=== PATIENT | female | born 1965 | race African-American/Black ===

== ENCOUNTER 2024-09-13 14:47 | Inpatient (IN) | payer BC, MEDICARE, SELFPAY ==
[2024-09-13] MEDS ORDERED: Fentanyl CADD 100 ML IV SCH ×2 (15:45→17:15)
[2024-09-13 16:19] LABS: Bacteria/HPF None Seen HPF (None Seen); Bilirubin Negative (Negative); Blood, Urine Negative (Negative); CAUTI Indications for Culture Alt mental st,lethar; Clarity Clear (Clear); Glucose, Urine (Dipstick) Greater than 1000 mg/dL (Negative); Ketone, Urine Negative (Negative); Leukocyte Negative Leu/uL (Negative); Nitrite Negative (Negative); Protein, Urine (Dipstick) Negative (Neg-Trace); RBC/HPF 0-3 HPF (0-3); Specific Gravity, Urine 1.026 (1.002-1.036); Squamous Epithelial 0-3 HPF (0-3); Urobilinogen Normal mg/dL (Less than 2); WBC/HPF 0-3 HPF (0-3); pH, Urine 5.5 (5.0-9.0)
[2024-09-13 16:19] LABS: Magnesium 3.2 mg/dL (1.6-2.6)
[2024-09-13 16:20] LABS: Acetaminophen Less than 10 mcg/mL (Less than 10); Alcohol Less than 10.0 mg/dL (Less than 10); Salicylate Less than 8.0 mg/dL (Less than 8.0); Troponin I 0.027 ng/mL (< 0.028)
[2024-09-13 16:25] LABS: Amphetamine Not Detected (NotDetected); Barbiturates Screen Not Detected (NotDetected); Benzodiazepine Screen Not Detected (NotDetected); Cocaine Metabolite Screen Not Detected (NotDetected); Methadone Not Detected (NotDetected); Methamphetamine Not Detected (NotDetected); Opiate Screen Not Detected (NotDetected); Oxycodone Screen Not Detected (NotDetected); Phencyclidine (PCP) Not Detected (NotDetected); THC/Cannabinoid Screen Not Detected (NotDetected); Tricyclic Screen Not Detected (NotDetected)
[2024-09-13] MEDS ORDERED: cefTRIAXone (ROCEPHIN) 2 GM VIAL ONE (16:32)
[2024-09-13] MEDS ORDERED: Sodium Chloride 0.9% 100 ML ONE (16:33)
[2024-09-13 16:35] LABS: Urine Culture Reflex No No
[2024-09-13] MEDS ORDERED: Azithromycin 500 MG VIAL ONE (16:46)
[2024-09-13] MEDS ORDERED: Ventilator Sedation Protocol FS SCH (16:55)
[2024-09-13] MEDS ORDERED: Electrolyte Replacement Protocol 1 EACH FS SCH (16:55)
[2024-09-13] MEDS ORDERED: Sodium Chloride 0.9% 1,000 ML IV SCH (17:00)
[2024-09-13] MEDS ORDERED: NOREPINEPHRINE 8 MG/250 ML-D5W 250 ML IVPB SCH (17:00)
[2024-09-13] MEDS ORDERED: Glucagon 1 MG/ML KIT IM PRN (17:08)
[2024-09-13] MEDS ORDERED: Insulin Regular, Human 100 UNIT/ML 10 ML VIAL SC PRN (17:08)
[2024-09-13] MEDS ORDERED: Dextrose 50% Abboject 50 ML SYRINGE SLOW IVP PRN (17:08)
[2024-09-13] MEDS ORDERED: Dextrose 5% in Water 1,000 ML IV PRN (17:08)
[2024-09-13] MEDS ORDERED: DISCONTINUE PREVIOUS NARCOTIC PAIN MEDICATIONS AND BENZODIAZEPINES FS SCH (17:15)
[2024-09-13] MEDS ORDERED: Fentanyl BOLUS 250 ML IVPB PRN (17:15)
[2024-09-13] MEDS ORDERED: Propofol BOLUS 1,000 MG/100 ML VIAL IV PRN (17:15)
[2024-09-13 17:40] LABS: Actual Bicarbonate (HCO3a) 24.1 mEq/L (22-28); Analyzer IN Cardio ER; Base Excess (BEa) 1.4 mEq/L (-2.0 to +3.0); CO2 Tension 31.2 mmHg (35.0-45.0); Calcium, Ionized (arterial) 1.22 mmol/L (1.12-1.30); Carboxyhemoglobin (COHb) 0.1 gm% (0.0-3.0); Hematocrit-ABG 32 % (36.0-47.0); Hemoglobin (Hb) 10.8 g/dL (12.0-16.0); O2 Tension (PaO2), arterial 61.9 mmHg (> 80.0); Potassium - ABG Lab 3.94 mmol/L (3.70-5.30); pH, Arterial 7.505 (7.35-7.45)
[2024-09-13 17:43] LABS: Puncture Site Right Radial artery
[2024-09-13 19:02] LABS: #Basophils Less than 0.03 10x3/uL (0.0-0.2); #Eosinophils Less than 0.03 10x3/uL (0.0-0.7); %Basophils 0.1 % (0.0-1.0); %Lymphocytes 18.8 % (21.0-51.0); %Monocytes 6.2 % (0.0-10.0); %Neutrophils 74.4 % (42.0-75.0); Hematocrit 34.3 % (36.0-47.0); Hemoglobin 10.3 g/dL (12.0-16.0); Mean Corpuscular Volume 96.6 fL (78.0-98.0); Mean Platelet Volume 12.9 fL (7.4-10.4); Platelet Count 129 10x3/uL (130-400); RBC Distribution Width 16.9 % (11.5-14.5); Red Blood Cell (RBC) Count 3.55 mill/uL (4.20-5.40)
[2024-09-13] MEDS: Ipratropium/Albuterol 3 ML NEB NEB SCH (19:13)
[2024-09-13 19:23] LABS: ALT (SGPT) 15 U/L (8-55); AST (SGOT) 15 U/L (5-34); Albumin 2.2 g/dL (3.5-5.0); Alkaline Phosphatase 87 U/L (40-110); Anion Gap 16 mmol/L (10-20); BUN (Urea Nitrogen) 103 mg/dL (9.8-20.1); Bilirubin, Total 0.2 mg/dL (0.2-1.2); Calcium 8.3 mg/dL (7.8-10.44); Carbon Dioxide 23 mmol/L (22-29); Chloride 128 mmol/L (98-107); Globulin 3.4 g/dL (2.4-3.5); Glucose 705 mg/dL (70-105); Potassium 3.9 mmol/L (3.5-5.1); Protein, Total 5.6 g/dL (6.0-8.3); Sodium 163 mmol/L (136-145)
[2024-09-13 19:34] LABS: INR-International Normal Ratio 1.2; Prothrombin Time 15.5 sec (12.0-14.7)
[2024-09-13 19:35] LABS: PTT 25.5 sec (22.9-36.1)
[2024-09-13 19:39] VITALS: BMI 25.7
[2024-09-13 19:48] LABS: Calc. Creatinine Clearance 32 mL/min (70-130); Estimated GFR 28
[2024-09-13] MEDS: Dextrose 5% in Water 1,000 ML IV SCH (19:57)
[2024-09-13] MEDS ORDERED: Vancomycin Dose by Levels Sliding Scale (Wt <71) FS SCH (20:00)
[2024-09-13] MEDS: Cefepime 1 GM in Sodium Chloride 0.9% 100 ML IVPB SCH (20:08)
[2024-09-13] MEDS: INSULIN REGULAR IN 0.9 % NACL 100 ML IVPB SCH (20:18)
[2024-09-13] MEDS: Vancomycin (BATCH) 1.5 GM in Premix 1 BAG IVPB SCH (21:28)
[2024-09-13 21:42] LABS: Glucose 648 mg/dL (70-105)
[2024-09-13 22:18] LABS: Troponin I 0.037 ng/mL (< 0.028)
[2024-09-13 22:26] LABS: Critical Call Chemistry D; Glucose 591 mg/dL (70-105)
[2024-09-13 23:30] LABS: Troponin I 0.034 ng/mL (< 0.028)
[2024-09-13 23:58] LABS: Anion Gap 15 mmol/L (10-20); BUN (Urea Nitrogen) 91 mg/dL (9.8-20.1); Calc. Creatinine Clearance 34 mL/min (70-130); Calcium 8.7 mg/dL (7.8-10.44); Carbon Dioxide 21 mmol/L (22-29); Chloride 131 mmol/L (98-107); Estimated GFR 30; Glucose 542 mg/dL (70-105); Potassium 3.2 mmol/L (3.5-5.1); Sodium 164 mmol/L (136-145)
[2024-09-14] MEDS: Potassium Chloride 40 MEQ in Premix 1 BAG IVPB SCH ×2 (00:38→12:06)
[2024-09-14] MEDS: Dextrose 5% in Water 1,000 ML IV SCH ×2 (00:46→14:42)
[2024-09-14 00:55] LABS: Glucose 464 mg/dL (70-105)
[2024-09-14] MEDS: Propofol 1,000 MG/100 ML VIAL IV PRN (02:59)
[2024-09-14 05:13] LABS: Hematocrit 33.2 % (36.0-47.0); Hemoglobin 9.6 g/dL (12.0-16.0); Mean Corpuscular HGB CONC 28.9 g/dL (32.0-36.0); Mean Corpuscular Hemoglobin 28.4 pg (27.0-31.0); Mean Corpuscular Volume 98.2 fL (78.0-98.0); Mean Platelet Volume 12.6 fL (7.4-10.4); Platelet Count 112 10x3/uL (130-400); RBC Distribution Width 16.9 % (11.5-14.5); Red Blood Cell (RBC) Count 3.38 mill/uL (4.20-5.40)
[2024-09-14 05:27] LABS: Anion Gap 14 mmol/L (10-20); BUN (Urea Nitrogen) 91 mg/dL (9.8-20.1); Calc. Creatinine Clearance 43 mL/min (70-130); Calcium 8.9 mg/dL (7.8-10.44); Carbon Dioxide 22 mmol/L (22-29); Chloride 130 mmol/L (98-107); Estimated GFR 39; Glucose 340 mg/dL (70-105); Potassium 3.6 mmol/L (3.5-5.1); Sodium 162 mmol/L (136-145)
[2024-09-14 05:38] LABS: Band 38 % (5-11); Eosinophils 1 % (0-10); Hypochromia SLIGHT = 6-15 cells HPF (0-5); Large Platelets 6.7 % (0-5); Lymphocytes 26 % (21-51); Metamyelocyte 1 % (0-0); Monocytes 3 % (0-10); Myelocyte 1 % (0-0); Neutrophil 31 % (42-75); Nucleated RBC (Manual Ct) 10 % (0); Platelet Adequacy Comment Platelets Decreased; Polychromasia SLIGHT = 2-3 cells HPF (0-2)
[2024-09-14 07:57] LABS: Actual Bicarbonate (HCO3a) 22.7 mEq/L (22-28); Base Excess (BEa) -2.2 mEq/L (-2.0 to +3.0); CO2 Tension 39.2 mmHg (35.0-45.0); Calcium, Ionized (arterial) 1.29 mmol/L (1.12-1.30); Carboxyhemoglobin (COHb) 0.8 gm% (0.0-3.0); Hematocrit-ABG 35 % (36.0-47.0); Hemoglobin (Hb) 11.8 g/dL (12.0-16.0); O2 Tension (PaO2), arterial 77.9 mmHg (> 80.0); Potassium - ABG Lab 3.38 mmol/L (3.70-5.30)
[2024-09-14 07:59] LABS: Puncture Site Left Radial artery
[2024-09-14 09:52] LABS: Anion Gap 9 mmol/L (10-20); BUN (Urea Nitrogen) 81 mg/dL (9.8-20.1); Calc. Creatinine Clearance 52 mL/min (70-130); Calcium 8.8 mg/dL (7.8-10.44); Carbon Dioxide 24 mmol/L (22-29); Chloride 131 mmol/L (98-107); Estimated GFR 49; Glucose 197 mg/dL (70-105); Potassium 3.4 mmol/L (3.5-5.1); Sodium 161 mmol/L (136-145)
[2024-09-14] MEDS: Pantoprazole 40 MG VIAL IVP SCH (10:00)
[2024-09-14 12:53] LABS: Vancomycin, Random 18.6 ug/mL (See Comment)
[2024-09-14 14:02] LABS: Anion Gap 12 mmol/L (10-20); BUN (Urea Nitrogen) 67 mg/dL (9.8-20.1); Calc. Creatinine Clearance 61 mL/min (70-130); Carbon Dioxide 23 mmol/L (22-29); Chloride 129 mmol/L (98-107); Estimated GFR 59; Glucose 84 mg/dL (70-105); Potassium 4.4 mmol/L (3.5-5.1); Sodium 160 mmol/L (136-145)
[2024-09-14] MEDS: FLU (Fluarix Triv) TS24-25(6MOS UP)/PF 45 MCG/0.5 ML Syringe IM ONE (14:28)
[2024-09-14] MEDS ORDERED: Electrolyte Replacement Protocol FS PRN (14:45)
[2024-09-14] MEDS: Vancomycin 1 GM in Premix 1 BAG IVPB SCH (16:30)
[2024-09-14 16:39] LABS: Anion Gap 12 mmol/L (10-20); BUN (Urea Nitrogen) 65 mg/dL (9.8-20.1); Calc. Creatinine Clearance 53 mL/min (70-130); Calcium 8.9 mg/dL (7.8-10.44); Carbon Dioxide 22 mmol/L (22-29); Chloride 128 mmol/L (98-107); Estimated GFR 50; Glucose 171 mg/dL (70-105); Potassium 4.6 mmol/L (3.5-5.1); Sodium 157 mmol/L (136-145)
[2024-09-14] MEDS: Morphine 2 MG/ML VIAL SLOW IVP PRN (19:43)
[2024-09-14] MEDS: Cefepime 2 GM in Sodium Chloride 0.9% 100 ML IVPB SCH (19:54)
[2024-09-14 20:11] LABS: Anion Gap 14 mmol/L (10-20); BUN (Urea Nitrogen) 63 mg/dL (9.8-20.1); Calc. Creatinine Clearance 51 mL/min (70-130); Calcium 8.7 mg/dL (7.8-10.44); Carbon Dioxide 20 mmol/L (22-29); Chloride 124 mmol/L (98-107); Estimated GFR 48; Glucose 353 mg/dL (70-105); Potassium 4.6 mmol/L (3.5-5.1); Sodium 153 mmol/L (136-145)
[2024-09-14] MEDS: Lorazepam 2 MG/ML VIAL SLOW IVP PRN (20:24)
[2024-09-14] MEDS ORDERED: Glucagon 1 MG/ML KIT IM PRN (20:38)
[2024-09-14] MEDS ORDERED: Dextrose 5% in Water 1,000 ML IV PRN (20:38)
[2024-09-14] MEDS: Insulin Lispro 100 UNIT/ML 10 ML VIAL SC PRN (20:57)
[2024-09-14 23:43] LABS: Anion Gap 12 mmol/L (10-20); BUN (Urea Nitrogen) 60 mg/dL (9.8-20.1); Calc. Creatinine Clearance 52 mL/min (70-130); Calcium 8.5 mg/dL (7.8-10.44); Carbon Dioxide 19 mmol/L (22-29); Chloride 123 mmol/L (98-107); Estimated GFR 49; Glucose 426 mg/dL (70-105); Potassium 4.3 mmol/L (3.5-5.1); Sodium 150 mmol/L (136-145)
[2024-09-14] MEDS: INSULIN REGULAR IN 0.9 % NACL 100 ML IVPB SCH (23:59)
[2024-09-15] MEDS: Dextrose 5% in Water 1,000 ML IV SCH (01:13)
[2024-09-15 04:51] LABS: Hematocrit 27.2 % (36.0-47.0); Hemoglobin 8.1 g/dL (12.0-16.0); Mean Corpuscular HGB CONC 29.8 g/dL (32.0-36.0); Mean Corpuscular Hemoglobin 28.9 pg (27.0-31.0); Mean Corpuscular Volume 97.1 fL (78.0-98.0); Mean Platelet Volume 13.2 fL (7.4-10.4); Platelet Count 91 10x3/uL (130-400); RBC Distribution Width 16.9 % (11.5-14.5)
[2024-09-15 04:59] LABS: Anion Gap 13 mmol/L (10-20); BUN (Urea Nitrogen) 56 mg/dL (9.8-20.1); Calc. Creatinine Clearance 53 mL/min (70-130); Calcium 8.5 mg/dL (7.8-10.44); Carbon Dioxide 20 mmol/L (22-29); Chloride 120 mmol/L (98-107); Estimated GFR 48; Glucose 335 mg/dL (70-105); Potassium 3.9 mmol/L (3.5-5.1); Sodium 149 mmol/L (136-145)
[2024-09-15 06:25] LABS: Band 57 % (5-11); Large Platelets 12.7 % (0-5); Lymphocytes 11 % (21-51); Metamyelocyte 1 % (0-0); Monocytes 2 % (0-10); Neutrophil 29 % (42-75); Nucleated RBC (Manual Ct) 4 % (0); Platelet Adequacy Comment Platelets Decreased; Polychromasia SLIGHT = 2-3 cells HPF (0-2); Toxic Granulation SLIGHT; Vacuoles SLIGHT
[2024-09-15] MEDS: Sodium Chloride 0.45% 1,000 ML IV SCH (09:43)
[2024-09-15] MEDS: Insulin Glargine 30 UNITS/0.3 ML VIAL SC SCH (10:18)
[2024-09-15] MEDS ORDERED: Insulin Lispro 100 UNIT/ML 10 ML VIAL SC PRN (11:30)
[2024-09-15] MEDS: Nystatin 500,000 UNITS/5 ML UDCUP SSW SCH (12:58)
[2024-09-15] MEDS: levETIRAcetam 500 mg/5 ml Oral Solution PER TUBE SCH (20:13)
[2024-09-16] MEDS: Insulin Lispro 100 UNIT/ML 10 ML VIAL SC PRN (00:46)
[2024-09-16 05:48] LABS: Hematocrit 24.1 % (36.0-47.0); Hemoglobin 7.2 g/dL (12.0-16.0); Mean Corpuscular HGB CONC 29.9 g/dL (32.0-36.0); Mean Corpuscular Hemoglobin 28.5 pg (27.0-31.0); Mean Corpuscular Volume 95.3 fL (78.0-98.0); Mean Platelet Volume 13.3 fL (7.4-10.4); Platelet Count 94 10x3/uL (130-400); RBC Distribution Width 16.4 % (11.5-14.5); Red Blood Cell (RBC) Count 2.53 mill/uL (4.20-5.40)
[2024-09-16 06:22] LABS: Band 11 % (5-11); Eosinophils 1 % (0-10); Lymphocytes 7 % (21-51); Monocytes 4 % (0-10); Neutrophil 77 % (42-75); Nucleated RBC (Manual Ct) 6 % (0); Platelet Adequacy Comment Platelets Decreased; Polychromasia SLIGHT = 2-3 cells HPF (0-2)
[2024-09-16 06:41] LABS: Anion Gap 13 mmol/L (10-20); BUN (Urea Nitrogen) 35 mg/dL (9.8-20.1); Calc. Creatinine Clearance 66 mL/min (70-130); Calcium 8.8 mg/dL (7.8-10.44); Carbon Dioxide 17 mmol/L (22-29); Chloride 117 mmol/L (98-107); Estimated GFR 63; Glucose 222 mg/dL (70-105); Potassium 3.7 mmol/L (3.5-5.1); Sodium 143 mmol/L (136-145)
[2024-09-16 06:42] LABS: Vancomycin, Random 27.6 ug/mL (See Comment)
[2024-09-16 08:06] LABS: Actual Bicarbonate (HCO3a) 17.7 mEq/L (22-28); Base Excess (BEa) -5.9 mEq/L (-2.0 to +3.0); CO2 Tension 28.4 mmHg (35.0-45.0); Calcium, Ionized (arterial) 1.28 mmol/L (1.12-1.30); Carboxyhemoglobin (COHb) 0.2 gm% (0.0-3.0); Hematocrit-ABG 28 % (36.0-47.0); Hemoglobin (Hb) 9.6 g/dL (12.0-16.0); O2 Tension (PaO2), arterial 65.5 mmHg (> 80.0); Potassium - ABG Lab 3.84 mmol/L (3.70-5.30); pH, Arterial 7.412 (7.35-7.45)
[2024-09-16 08:07] LABS: Puncture Site Right Radial artery
[2024-09-16] MEDS: Sertraline 25 MG TAB PER TUBE SCH (08:26)
[2024-09-16] MEDS: Vancomycin HCl 750 MG in Sodium Chloride 0.9% 250 ML 250 ML IVPB SCH (17:09)
[2024-09-16] MEDS: Piperacillin/Tazobactam 3.375 GM in Sodium Chloride 0.9% 100 ML IVPB SCH ×2 (19:41→22:17)
[2024-09-16] MEDS: Carvedilol 6.25 MG TAB PER TUBE SCH (20:16)
[2024-09-16] MEDS: Insulin Glargine 30 UNITS/0.3 ML VIAL SC SCH (20:17)
[2024-09-17 04:24] LABS: #Basophils Less than 0.03 10x3/uL (0.0-0.2); %Basophils 0.1 % (0.0-1.0); %Eosinophils 1.1 % (0.0-10.0); %Lymphocytes 7.8 % (21.0-51.0); %Monocytes 5.9 % (0.0-10.0); %Neutrophils 83.5 % (42.0-75.0); Hematocrit 20.9 % (36.0-47.0); Hemoglobin 6.5 g/dL (12.0-16.0); Mean Corpuscular HGB CONC 31.1 g/dL (32.0-36.0); Mean Corpuscular Hemoglobin 28.8 pg (27.0-31.0); Mean Corpuscular Volume 92.5 fL (78.0-98.0); Mean Platelet Volume 12.9 fL (7.4-10.4); Platelet Count 86 10x3/uL (130-400); RBC Distribution Width 16.2 % (11.5-14.5); Red Blood Cell (RBC) Count 2.26 mill/uL (4.20-5.40)
[2024-09-17 04:45] LABS: Anion Gap 11 mmol/L (10-20); BUN (Urea Nitrogen) 25 mg/dL (9.8-20.1); Calc. Creatinine Clearance 72 mL/min (70-130); Calcium 8.5 mg/dL (7.8-10.44); Carbon Dioxide 18 mmol/L (22-29); Chloride 120 mmol/L (98-107); Estimated GFR 69; Glucose 245 mg/dL (70-105); Potassium 3.6 mmol/L (3.5-5.1); Sodium 145 mmol/L (136-145)
[2024-09-17 08:20] LABS: Actual Bicarbonate (HCO3a) 19.9 mEq/L (22-28); Base Excess (BEa) -4.5 mEq/L (-2.0 to +3.0); CO2 Tension 33.3 mmHg (35.0-45.0); Calcium, Ionized (arterial) 1.28 mmol/L (1.12-1.30); Carboxyhemoglobin (COHb) 0.6 gm% (0.0-3.0); Hematocrit-ABG 23 % (36.0-47.0); Hemoglobin (Hb) 7.7 g/dL (12.0-16.0); O2 Tension (PaO2), arterial 102.5 mmHg (> 80.0); Potassium - ABG Lab 3.48 mmol/L (3.70-5.30); Puncture Site Right Radial artery; pH, Arterial 7.394 (7.35-7.45)
[2024-09-17 08:21] LABS: ALV-art Gradient 141.075 mmHg (0-20)
[2024-09-17] MEDS: Aspirin Chewable 81 MG TAB PER TUBE SCH (08:36)
[2024-09-17] MEDS: Famotidine 20 MG TAB PER TUBE SCH (08:36)
[2024-09-17] MEDS: Atorvastatin Calcium 40 MG TAB PER TUBE SCH (08:36)
[2024-09-17] MEDS: Sodium Chloride 0.45% 1,000 ML IV SCH (13:05)
[2024-09-18 04:40] LABS: #Basophils Less than 0.03 10x3/uL (0.0-0.2); %Basophils 0.2 % (0.0-1.0); %Eosinophils 1.3 % (0.0-10.0); %Lymphocytes 11.2 % (21.0-51.0); %Monocytes 5.4 % (0.0-10.0); Hematocrit 26.3 % (36.0-47.0); Hemoglobin 8.5 g/dL (12.0-16.0); Mean Corpuscular HGB CONC 32.3 g/dL (32.0-36.0); Mean Corpuscular Volume 89.8 fL (78.0-98.0); Mean Platelet Volume 12.5 fL (7.4-10.4); Platelet Count 98 10x3/uL (130-400); RBC Distribution Width 16.3 % (11.5-14.5); Red Blood Cell (RBC) Count 2.93 mill/uL (4.20-5.40)
[2024-09-18 05:01] LABS: Vancomycin, Random 20.8 ug/mL (See Comment)
[2024-09-18 05:16] LABS: Anion Gap 10 mmol/L (10-20); BUN (Urea Nitrogen) 17 mg/dL (9.8-20.1); Calc. Creatinine Clearance 85 mL/min (70-130); Calcium 8.7 mg/dL (7.8-10.44); Carbon Dioxide 19 mmol/L (22-29); Chloride 119 mmol/L (98-107); Estimated GFR 83; Glucose 241 mg/dL (70-105); Potassium 3.1 mmol/L (3.5-5.1); Sodium 145 mmol/L (136-145)
[2024-09-18] MEDS: Potassium Chloride 40 MEQ in Premix 1 BAG IVPB SCH (06:16)
[2024-09-18 07:06] LABS: Actual Bicarbonate (HCO3a) 20.5 mEq/L (22-28); CO2 Tension 35.8 mmHg (35.0-45.0); Calcium, Ionized (arterial) 1.33 mmol/L (1.12-1.30); Carboxyhemoglobin (COHb) 0.8 gm% (0.0-3.0); Hematocrit-ABG 36 % (36.0-47.0); Hemoglobin (Hb) 12.4 g/dL (12.0-16.0); O2 Tension (PaO2), arterial 91.7 mmHg (> 80.0); Potassium - ABG Lab 3.23 mmol/L (3.70-5.30); pH, Arterial 7.376 (7.35-7.45)
[2024-09-18 07:07] LABS: Puncture Site Right Radial artery
[2024-09-18 15:24] VITALS: BMI 28.3
[2024-09-18] MEDS: Vancomycin 1 GM in Premix 1 BAG IVPB SCH (16:18)
[2024-09-18] MEDS: SITAGLIPTIN PHOSPHATE 50 MG PER TUBE SCH (19:46)
[2024-09-18] MEDS: Nystatin 500,000 UNITS/5 ML UDCUP SSW SCH (21:27)
[2024-09-19 05:32] LABS: Anion Gap 9 mmol/L (10-20); BUN (Urea Nitrogen) 14 mg/dL (9.8-20.1); Calc. Creatinine Clearance 94 mL/min (70-130); Carbon Dioxide 20 mmol/L (22-29); Chloride 117 mmol/L (98-107); Estimated GFR 93; Glucose 114 mg/dL (70-105); Potassium 3.1 mmol/L (3.5-5.1); Sodium 143 mmol/L (136-145)
[2024-09-19 06:25] LABS: Hematocrit 26.6 % (36.0-47.0); Hemoglobin 8.6 g/dL (12.0-16.0); Mean Corpuscular HGB CONC 32.3 g/dL (32.0-36.0); Mean Corpuscular Hemoglobin 28.7 pg (27.0-31.0); Mean Corpuscular Volume 88.7 fL (78.0-98.0); Mean Platelet Volume 12.4 fL (7.4-10.4); Platelet Count 117 10x3/uL (130-400); RBC Distribution Width 16.2 % (11.5-14.5)
[2024-09-19 07:21] LABS: Anisocytosis SLIGHT = 6-15 cells HPF (0-5); Band 33 % (5-11); Eosinophils 2 % (0-10); Large Platelets 8.8 % (0-5); Lymphocytes 4 % (21-51); Macrocytosis SLIGHT = 6-15 cells HPF (0-5); Monocytes 2 % (0-10); Neutrophil 57 % (42-75); Nucleated RBC (Manual Ct) 3 % (0); Platelet Adequacy Comment Platelets Decreased; Polychromasia SLIGHT = 2-3 cells HPF (0-2); Smudge Cells 18.6 %
[2024-09-19] MEDS: Potassium Bicarbonate/Cit Ac 20 MEQ TAB PER TUBE SCH (09:32)
[2024-09-19 14:31] LABS: Potassium 3.5 mmol/L (3.5-5.1)
[2024-09-19] MEDS: Potassium Chloride 40 MEQ in Premix 1 BAG IVPB SCH (20:56)
[2024-09-20 05:05] LABS: Hematocrit 26.2 % (36.0-47.0); Hemoglobin 8.5 g/dL (12.0-16.0); Mean Corpuscular HGB CONC 32.4 g/dL (32.0-36.0); Mean Corpuscular Hemoglobin 28.8 pg (27.0-31.0); Mean Corpuscular Volume 88.8 fL (78.0-98.0); Mean Platelet Volume 12.9 fL (7.4-10.4); Platelet Count 129 10x3/uL (130-400); Red Blood Cell (RBC) Count 2.95 mill/uL (4.20-5.40)
[2024-09-20 05:18] LABS: Vancomycin, Random 20.9 ug/mL (See Comment)
[2024-09-20 05:34] LABS: Anion Gap 11 mmol/L (10-20); BUN (Urea Nitrogen) 12 mg/dL (9.8-20.1); Calc. Creatinine Clearance 106 mL/min (70-130); Calcium 8.9 mg/dL (7.8-10.44); Carbon Dioxide 21 mmol/L (22-29); Chloride 114 mmol/L (98-107); Estimated GFR 100; Glucose 153 mg/dL (70-105); Potassium 3.7 mmol/L (3.5-5.1); Sodium 142 mmol/L (136-145)
[2024-09-20 06:09] LABS: Band 23 % (5-11); Eosinophils 1 % (0-10); Lymphocytes 9 % (21-51); Monocytes 3 % (0-10); Myelocyte 2 % (0-0); Neutrophil 62 % (42-75); Nucleated RBC (Manual Ct) 1 % (0); Platelet Adequacy Comment Platelets Normal; Polychromasia SLIGHT = 2-3 cells HPF (0-2); Smudge Cells 7.9 %
[2024-09-21 06:22] LABS: Anion Gap 12 mmol/L (10-20); BUN (Urea Nitrogen) 10 mg/dL (9.8-20.1); Calc. Creatinine Clearance 125 mL/min (70-130); Calcium 8.9 mg/dL (7.8-10.44); Carbon Dioxide 22 mmol/L (22-29); Chloride 116 mmol/L (98-107); Estimated GFR 103; Glucose 53 mg/dL (70-105); Potassium 3.5 mmol/L (3.5-5.1); Sodium 146 mmol/L (136-145)
[2024-09-21] MEDS: Dextrose 50% Abboject 50 ML SYRINGE SLOW IVP PRN (06:27)
[2024-09-21] MEDS ORDERED: D5 1/2 NS w/10 mEq KCl 1,000 ML/1,000 ML BAG IV SCH (06:30)
[2024-09-21 06:40] LABS: Hematocrit 27.3 % (36.0-47.0); Hemoglobin 8.7 g/dL (12.0-16.0); Mean Corpuscular HGB CONC 31.9 g/dL (32.0-36.0); Mean Corpuscular Hemoglobin 28.6 pg (27.0-31.0); Mean Corpuscular Volume 89.8 fL (78.0-98.0); Mean Platelet Volume 12.4 fL (7.4-10.4); Platelet Count 136 10x3/uL (130-400); RBC Distribution Width 16.3 % (11.5-14.5); Red Blood Cell (RBC) Count 3.04 mill/uL (4.20-5.40)
[2024-09-21 07:27] LABS: Band 25 % (5-11); Eosinophils 1 % (0-10); Lymphocytes 9 % (21-51); Metamyelocyte 1 % (0-0); Neutrophil 64 % (42-75); Nucleated RBC (Manual Ct) 1 % (0); Platelet Adequacy Comment Platelets Normal; Polychromasia SLIGHT = 2-3 cells HPF (0-2)
[2024-09-21] MEDS: Potassium Bicarbonate/Cit Ac 20 MEQ TAB PER TUBE SCH ×2 (09:23→15:52)
[2024-09-21] MEDS: Potassium Chloride 10 MEQ in Dextrose 5 %-0.45 % NaCl 1,000 ML IV SCH (09:24)
[2024-09-21 12:06] LABS: Potassium 3.5 mmol/L (3.5-5.1)
[2024-09-21 14:54] LABS: Potassium 3.3 mmol/L (3.5-5.1)
[2024-09-21] MEDS ORDERED: Fentanyl BOLUS 250 ML IVPB PRN (18:30)
[2024-09-21] MEDS ORDERED: Propofol BOLUS 1,000 MG/100 ML VIAL IV PRN (18:30)
[2024-09-21] MEDS ORDERED: DISCONTINUE PREVIOUS NARCOTIC PAIN MEDICATIONS AND BENZODIAZEPINES FS SCH (18:30)
[2024-09-21] MEDS ORDERED: Fentanyl CADD 100 ML IV SCH (18:30)
[2024-09-21] MEDS: Propofol 1,000 MG/100 ML VIAL IV ONE (19:13)
[2024-09-22] MEDS: Propofol 1,000 MG/100 ML VIAL IV PRN (01:46)
[2024-09-22] MEDS: Lorazepam 2 MG/ML VIAL SLOW IVP PRN (07:37)
[2024-09-22] MEDS: Morphine 2 MG/ML VIAL SLOW IVP PRN (07:37)
[2024-09-22 07:43] VITALS: BP 155/82
[2024-09-22] MEDS: Dextrose 5 %-0.45 % NaCl 1,000 ML IV SCH (11:00)
[2024-09-22 12:31] VITALS: TEMP 98.6
== END 2024-09-22 15:46 | disposition hospice, inpatient (51) | DRG 870 ==
LOC: ERS 14:47 → ERHOLD 16:20 → CCU 17:42
PROVIDERS: ADMIT Family Medicine; ATTEND Family Medicine
PROC: 0BH17EZ Insertion of Endotracheal Airway into Trachea, Via Natural or Artificial Opening (ICD-10-PCS; principal; 2024-09-13)
PROC: 5A1955Z Respiratory Ventilation, Greater than 96 Consecutive Hours (ICD-10-PCS; 2024-09-13)
PROC: 3E033XZ Introduction of Vasopressor into Peripheral Vein, Percutaneous Approach (ICD-10-PCS; 2024-09-13)
PROC: XX20X89 Monitoring of Brain Electrical Activity, Computer-aided Detection and Notification, New Technology Group 9 (ICD-10-PCS; 2024-09-13)
PROC: 02H633Z Insertion of Infusion Device into Right Atrium, Percutaneous Approach (ICD-10-PCS; 2024-09-13)
PROC: B548ZZA Ultrasonography of Superior Vena Cava, Guidance (ICD-10-PCS; 2024-09-13)
PROC: 4A133R1 Monitoring of Arterial Saturation, Peripheral, Percutaneous Approach (ICD-10-PCS; 2024-09-13)
PROC: 30233N1 Transfusion of Nonautologous Red Blood Cells into Peripheral Vein, Percutaneous Approach (ICD-10-PCS; 2024-09-17)
DX: A41.9 Sepsis, unspecified organism (principal); J69.0 Pneumonitis due to inhalation of food and vomit; E11.00 Type 2 diabetes mellitus with hyperosmolarity without nonketotic hyperglycemic-hyperosmolar coma (NKHHC); J96.01 Acute respiratory failure with hypoxia; E87.0 Hyperosmolality and hypernatremia; N17.9 Acute kidney failure, unspecified; E87.20 Acidosis, unspecified; R65.20 Severe sepsis without septic shock; D64.9 Anemia, unspecified; Z66 Do not resuscitate; Z51.5 Encounter for palliative care; E83.42 Hypomagnesemia; E78.5 Hyperlipidemia, unspecified; I10 Essential (primary) hypertension; Z74.01 Bed confinement status; Z86.73 Personal history of transient ischemic attack (TIA), and cerebral infarction without residual deficits; D69.6 Thrombocytopenia, unspecified
CPT/HCPCS: 36415; 36416; 36430; 36600; 51702; 70450; 71045; 80048; 80053; 80202; 80306; 80307; 81001; 82805; 83605; 83735; 83880; 84145; 84443; 84484; 85025; 85610; 85730; 86141; 86850; 86900; 86901; 87040; 87077; 87086; 87149; 87428; 93005; 93010; 94002; 94003; 94640; 94760; 96365; 96366; 96367; J0456; J0692; J0696; J1815; J2060; J2272; J2470; J2543; J2704; J3010; J3370; J3480; J7042; J7050; J7070; J7620; J7999; P9016

== ENCOUNTER 2024-09-22 15:51 | Inpatient (IN) | payer MEDICARE, OTHER ==
[2024-09-22] MEDS ORDERED: Acetaminophen 325 MG TAB PO PRN (16:04)
[2024-09-22] MEDS ORDERED: Acetaminophen 650 MG Suppository PR PRN (16:05)
[2024-09-22] MEDS ORDERED: Lorazepam 2 MG/ML VIAL SLOW IVP PRN (16:08)
[2024-09-22 16:10] VITALS: BMI 25.7
[2024-09-22] MEDS: Glycopyrrolate 0.4 MG/ 2 ML VIAL SLOW IVP PRN (16:21)
[2024-09-22] MEDS: Scopolamine 1 mg/72 hour Patch TOP PRN (16:21)
[2024-09-22] MEDS: Lorazepam 2 MG/ML VIAL SLOW IVP SCH ×2 (16:28→16:54)
[2024-09-22] MEDS: Morphine 4 MG/ML VIAL SLOW IVP SCH ×2 (16:28→18:15)
[2024-09-22] MEDS: Morphine 4 MG/ML VIAL SLOW IVP PRN (16:54)
[2024-09-23] MEDS: Glycopyrrolate 0.4 MG/ 2 ML VIAL SLOW IVP PRN (19:04)
[2024-09-23 23:46] VITALS: BMI 25.7
[2024-09-24] MEDS: Atropine Sulfate 1% Ophth Soln 5 ml Bottle SL PRN (12:01)
[2024-09-25 08:23] VITALS: BP 118/67; TEMP 97.7
[2024-09-25] MEDS: Lorazepam 2 MG/ML VIAL SLOW IVP SCH (17:59)
== END 2024-09-25 18:22 | disposition expired | DRG 951 ==
LOC: CCU 15:51 → T4-A 21:50
PROVIDERS: ADMIT Family Medicine; ATTEND Family Medicine
DX: Z51.5 Encounter for palliative care (principal); E11.00 Type 2 diabetes mellitus with hyperosmolarity without nonketotic hyperglycemic-hyperosmolar coma (NKHHC); J96.01 Acute respiratory failure with hypoxia; J69.0 Pneumonitis due to inhalation of food and vomit; A41.9 Sepsis, unspecified organism; N17.9 Acute kidney failure, unspecified; E87.0 Hyperosmolality and hypernatremia; D64.9 Anemia, unspecified; Z79.4 Long term (current) use of insulin; Z79.899 Other long term (current) drug therapy
CPT/HCPCS: J2060; J2272